=== PATIENT | male | born 1995 | race Caucasian/White ===

== ENCOUNTER 2021-12-10 19:46 | Emergency (ER) | payer BC, OTHER, SELFPAY ==
--- NOTE | 2021-12-10 19:48 | ED.EYEPROB ---
HPI - Eye Problem General Chief complaint: Eye Problems Stated complaint: Eye Pain Time Seen by Provider: 12/10/21 19:48 Source: patient and RN notes reviewed History of Present Illness HPI Narrative: Patient is a 26-year-old male who presents the urgent care with complaints of redness, swelling, tearing to the right eye. Patient states that he woke up with the issue this morning and has been using [id number] antihistamine drops. Patient denies of any known injury. Patient denies of any vision changes and states that he does typically wear prescription glasses. No other acute complaints. No acute distress noted. Patient aware of the plan of care. Some parts of this dictation were generated by voice recognition software and may contain typographical and/or grammatical inaccuracies. Related Data Allergies Allergy/AdvReac Type Severity Reaction Status Date / Time No Known Allergies Allergy Unverified 12/10/21 19:50 Review of Systems Review of Systems: CONSTITUTIONAL: Denies fever, chills, or sweats. EYES: Reports of right eye redness, irritation and drainage ENT: Denies rhinorrhea, congestion, sore throat, or otalgia. CARDIOVASCULAR: Denies chest pain, palpitations, or edema. RESPIRATORY: Denies cough or dyspnea. GASTROINTESTINAL: Denies abdominal pain, nausea, vomiting, or diarrhea. GENITOURINARY: Denies dysuria or hematuria. SKIN: Denies rash or itching. MUSCULOSKELETAL: Denies back pain, joint pain, or myalgia. NEUROLOGIC: Denies headache, numbness, or weakness. All other systems reviewed are negative, except as documented in HPI. PMFSH Comments At the time of my signature, I reviewed and agree with the nursing past medical, surgical, social, and family history. There is no relevant family history pertinent to the patient complaint. Exam Narrative: GENERAL: This is a well-nourished, well-developed patient, in no apparent distress. HEAD: normocephalic, atraumatic. EYES: PERRL. Right injected conjunctive a with erythemic sclera and clear to yellow drainage. Mild erythema and edema noted to the upper right eyelid with small outer canthus of her right eyelid hordeolum. Vision is grossly intact. EARS: External ears normal NOSE: External nose normal with no obvious nasal discharge, nares without redness, no rhinorrhea. THROAT: Mucous membranes moist NECK: Neck supple, non-tender without lymphadenopathy, masses or thyromegaly. CARDIOVASCULAR: Regular rate and rhythm without murmurs, gallops, or rubs. SKIN: warm, intact with no suspicious lesions or rash, good texture and turgor. NEURO: awake, alert, and oriented to person, place and time. There were no obvious focal neurologic abnormalities. EXTREMITIES: No clubbing, cyanosis, or edema. Course Course Level of Care: Express Care Visit Vital Signs Vital signs: Vital Signs Temperature 98.8 F 12/11/21 17:36 Pulse Rate 89 12/11/21 17:36 Respiratory Rate 20 12/11/21 17:36 Blood Pressure 131/76 12/11/21 17:36 Pulse Oximetry 100 12/11/21 17:36 Oxygen Delivery Room Air 12/11/21 17:36 Temperature 98.8 F 12/11/21 17:36 Pulse Rate 89 12/11/21 17:36 Respiratory Rate 20 12/11/21 17:36 Blood Pressure 131/76 12/11/21 17:36 Pulse Oximetry 100 12/11/21 17:36 Oxygen Delivery Room Air 12/11/21 17:36 Reviewed MDM - Eye Problem MDM Narrative Medical decision making narrative: Advised the patient to use the eyedrops to the right eye as directed. May use a warm compress and Benadryl/antihistamine as needed for itch. Do not to stop the eyedrops prior to the 7-day therapy. If you develop any increase in swelling associated with pain or fever?go to the emergency room. 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 Do not wear your contacts until the prescription drops are complete. Follow-up with your PCP within 2 to 5 days or for worsening symptoms or failure to improve. Differential Diagn
[2021-12-11 17:36] VITALS: BP 131/76; PULSE 89; RESP 20; TEMP 37.1; O2SAT 100
== END 2021-12-10 20:05 | disposition home or self-care (01) ==
PROVIDERS: Emergency Provider Nurse Practitioner Family; PCP Family Medicine
DX: H00.011 Hordeolum externum right upper eyelid (principal); H10.9 Unspecified conjunctivitis; Z86.16 Personal history of COVID-19
CPT/HCPCS: 99203; G0463